=== PATIENT | female | born 1960 | race African-American/Black ===

== ENCOUNTER 2017-09-23 20:06 | Emergency (ER) | payer SELFPAY ==
[2017-09-23 20:40] VITALS: BP 106/63
[2017-09-23] MEDS: ORPHENADRINE CITRATE 60 MG/2ML IM ONE (21:21)
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
--- NOTE | 2017-09-24 06:37 | Diagnostic Imaging Report ---
KATHERINE SHEPPARD (FRANK) - ER [facility] [address] Counts Include [address]eds At [facility] [address] [address] Report Submission Date: Sep 23, 2017 9:14:25 PM CDT Patient Study Name: MARY COY Date: Sep 23, 2017 9:05:41 PM CDT Modality Type: CR Gender: F Description: UPPER EXTREMITY : 62 Institution: [facility] Physician: KATHERINE SHEPPARD (FRANK) - ER Right hip 3 views Clinical history: Injured right hand No visible fracture, dislocation or bone destruction. Very mild osteoarthrosis is noted . Impression: Mild osteoarthrosis without fractures Electronically signed on Sep 23, 2017 9:14:25 PM CDT by: Scar CHAVES
== END 2017-09-23 21:35 | disposition home or self-care (01) ==
LOC: ED 20:06
DX: M62.830 Muscle spasm of back (principal); S60.221A Contusion of right hand, initial encounter; V89.2XXA Person injured in unspecified motor-vehicle accident, traffic, initial encounter; Y93.9 Activity, unspecified; Y99.9 Unspecified external cause status
CPT/HCPCS: 73130; 96372; 99283; J2360

== ENCOUNTER 2018-05-23 08:46 | Day surgery (SDC) | payer OTHER ==
[2018-05-23] MEDS ORDERED: LIDOCAINE HCL/PF 2% 100 MG/5 ML VIAL IJ ONE (08:47)
[2018-05-23] MEDS ORDERED: LACTATED RINGERS 1,000 ML IV.SOLN IV ONE (08:47)
[2018-05-23] MEDS ORDERED: PROPOFOL 200 MG/20 ML VIAL IV ONE (08:47)
--- NOTE | 2018-05-27 09:17 | GI Report ---
REFERRING PHYSICIAN: Dr. Phi Gaitan CASK MAKER: Jose Phan MD PROCEDURE MEDICATION: Propofol as per anesthesia. INDICATIONS: This 58-year-old woman is referred for a screening, high risk. Her father had colon cancer. She denies any change in bowel habits or blood in the stool. PROCEDURE PERFORMED: Colonoscopy. PROCEDURE: An Olympus video colonoscope was advanced to the rectum and slowly advanced all the way to the cecum. The appendiceal orifice and ileocecal valve looked normal. On slow withdrawal, the cecum, ascending colon, and transverse colon with no obvious intraluminal lesions noted. The descending colon and sigmoid with redundancy. No obvious intraluminal lesions were noted. Retroflexion of the rectum was normal. Patient tolerated the procedure well. FINDINGS: Normal mucosa to the cecum. No polyps or tumors noted. RECOMMENDATIONS: 1. Continue a high-fiber diet. 2. Since she is a high risk with a family history, would recommend a repeat colonoscopy for screening in 5 years because of first-degree relative, her father, with colon cancer. cc: Dr. Phi CHAVES
== END 2018-05-23 08:48 ==
LOC: OPSURG 08:46
PROVIDERS: ATTEND Internal Medicine Gastroenterology
DX: Z12.11 Encounter for screening for malignant neoplasm of colon (principal); Z80.0 Family history of malignant neoplasm of digestive organs
CPT/HCPCS: J2001; J2704; J7120; 45378; S1016

== ENCOUNTER 2019-10-07 22:17 | Emergency (ER) | payer BC, OTHER ==
[2019-10-07] MEDS ORDERED: ASPIRIN 81 MG CHEW TAB ONE (22:28)
[2019-10-07] MEDS ORDERED: ASPIRIN 81 MG CHEW TAB PO ONE (22:32)
--- NOTE | 2019-10-07 22:42 | ED Physician Documentation ---
Chest Pain - HISTORIAN Historian: patient - HPI Chief Complaint: Chest Pain Additional Information: 59 year old female presents with c/o chest pain that started 2 hours ago while sitting on the couch; goes up and down sternum with occasional sharp pain to the back; pain improves when sitting up and is reproducible; tender on palpation to epigastric region. Pain is gone at this time. Onset: hours Timing: sudden onset Duration: waxing, waning Last known Well Date: 10/07/19 Last Known Well Time: 20:30 Context: rest Severity: moderate Quality: sharp Chest Pain Radiation: back, epigastric Chest Pain Signs/Symptoms: denies: nausea, vomiting, diaphoresis Worsened By: movement Relieved By: sitting up - ROS CONST: none MS/LYMPH: none GI/: none EYES/ENT: none SKIN/ENDO: none NEURO/PSYCH: none - PAST HX [place] risk factors: hypertension, CHF, other (COPD) DVT/PE Risk Factors: none TAD/AAA risk factors: none Neuro deficit: none GI disease: none Lung disease: COPD Surgeries/Procedures: cardiac cath (no stent), hysterectomy Immunizations: UTD Allergies/Adverse Reactions: Allergies Allergy/AdvReac Type Severity Reaction Status Date / Time BETTY Inhibitors Allergy Face Verified 10/07/19 22:41 Swelling Home Medications: Ambulatory Orders Medication Instructions Recorded Carvedilol [Coreg] 25 mg PO BID u2 07/05/15 Furosemide 40 mg PO PRN PRN u2 07/05/15 Spironolactone 25 mg PO DAILY u2 07/05/15 Losartan Potassium [Cozaar] 25 mg PO D 09/23/17 Methotrexate Sodium [Rheumatrex] 2.5 mg PO M1800 09/23/17 Acai Luna Extract [Acai] 1,000 mg PO DAILY 10/07/19 Albuterol Sulfate [Albuterol 1 puff INH Q4H PRN 10/07/19 Sulfate Hfa] Cefdinir [Omnicef] 1 tab PO BID 10/07/19 Elderberry Fruit and Flower [Black 1 each PO DAILY 10/07/19 Elderberry 575 mg Cap] Hydroxyzine HCl [Atarax] 1 tab PO HS PRN 10/07/19 - SOCIAL HX Smoking History: non-smoker Alcohol Use: rarely Drug Use: none - FAMILY HX Family HX: none - VITAL SIGNS Vital Signs: Vital Signs Temp Pulse Resp BP Pulse Ox 74 106/63 98 10/07/19 22:32 09/23/17 22:05 10/07/19 22:32 - REVIEWED ASSESSMENTS Nursing Assessment Reviewed: Yes Vitals Reviewed: Yes Progress - Progress Progress: 12:06 lab work and xray back- negative; patient states she has a little discomfort with movement; will redraw cardiacs at 3 a.m. with EKG due to history of CHF to r/o NSTEMI; patient agrees with repeat labs at 3 a.m. 04:00 cardiac enzyme negative, ekg negative; patient resting comfortably; denies any pain or discomfort - EKG/XRAY/CT EKG: NSR (Rate 72) ED Results Lab/Radiology - Radiology Radiology Impressions: PA and lateral chest Clinical history: Chest pain. Findings: Examination of the chest in PA and lateral views with no prior films for comparison demonstrates the lungs to be clear. There is minimal apical pleural thickening bilaterally. Cardiac silhouette is within normal limits. Bony thorax is intact. Impression: 1. Left ventricular prominence and aortic atherosclerosis. 2. Bilateral apical pleural thickening. - Orders Orders: ED Orders Category Date Time Status Continuous EKG monitoring Q30M Care 10/07/19 22:32 Ordered Continuous Pulse Oximetry Q30M Care 10/07/19 22:[address] IV Lock 1T Care 10/07/19 22:32 Ordered CHEST 2VIEW [RAD] Stat Exams 10/07/19 Ordered CBC/PLATELET/DIFF Stat Lab 10/07/19 22:32 Ordered CKMB Stat Lab 10/07/19 22:32 Ordered CMP Stat Lab 10/07/19 22:32 Ordered CREATINE KINASE Stat Lab 10/07/19 22:32 Ordered TROPONIN I Stat Lab 10/07/19 22:32 Ordered Aspirin [Priscila] Med 10/07/19 22:28 Discontinued 324 mg .ROUTE .STK-MED ONE Aspirin [Priscila] Med 10/07/19 22:32 Once 324 mg PO NOW ONE Oxygen Daily Oxygen 10/07/19 22:45 Ordered EKG WITH COMPARISON Stat Ther 10/07/19 22:32 Ordered Chest Pain Physical Exam - EXAM General Appearance: no acute distress, alert EENT: eye inspection normal, ENT inspection normal, pharynx normal, no signs of dehydration, ZAIN Neck: nml inspection, no carotid bruit Respiratory: no resp. distress, nml breath sounds, manifests distinct pain on movement CVS: reg. rate & rhythm, no murmur, no gallop, no friction rub, pulses full, pulses equal Abdomen: soft, normal bowel sounds Skin: warm/dry, normal color Extremities: non-tender Neuro: oriented X3, CN's nml as tested, motor nml, sensation nml, mood/affect nml, cognition normal Discharge Clincal Impression: Non-cardiac chest pain Referrals: Naye Stevens PRN [Primary Care Provider] - 2 Days Additional Instructions: Take medications as directed May start taking over the counter Prilosec 20 mg daily Follow up with PCP next week for re-evaluation Condition: Good Disposition: 01 HOME, SELF-CARE Decision to Admit: NO Decision Time: 06:00
[2019-10-07] MEDS ORDERED: MAG HYDROX/ALUMINUM HYD/SIMETH 30 ML, Lidocaine 2% Viscous 15 ML PO ONE ×2 (22:44)
--- NOTE | 2019-10-07 23:16 | Diagnostic Imaging Report ---
PATIENT MR#: [id number] PATIENT PATIENT NAME: MARY COY DATE OF : 1960 REFERRING PHYSICIAN: Marina Rajan EXAM DATE: 10/07/2019 ACCESSION NUMBER: [id number] EXAM DESCRIPTION: CHEST 2VIEW PA and lateral chest Clinical history: Chest pain. Findings: Examination of the chest in PA and lateral views with no prior films for comparison demons trates the lungs to be clear. There is minimal apical pleural thickening bilaterally. Cardiac silhouette is within norm al limits. Bony thorax is intact. Impression: 1. Left ventricular prominence and aortic atherosclerosis. 2. Bilateral apical pleural thickening. Read by: Dr. Kostas Marrufo Transcribed by: Transcribed Date: Electronically signed by: Dr. Kostas Marrufo Date signed: 10/07/2019 11:16:11 PM
[2019-10-07 23:33] LABS: BASOPHILS % 0.5 % (0.0-1.5); NEUTROPHILS # 3.3 # k/uL (1.4-7.7)
[2019-10-07 23:37] LABS: eGFR (Non-African) > 60
[2019-10-08 04:08] VITALS: BP 111/67
== END 2019-10-08 04:06 | disposition home or self-care (01) ==
LOC: ED 22:17
DX: R07.89 Other chest pain (principal); M54.9 Dorsalgia, unspecified; R10.13 Epigastric pain
CPT/HCPCS: 71046; 80053; 82550; 82553; 84484; 85025; 93005; 99284; A9270; S1016